=== PATIENT | male | born 1960 | race Caucasian/White ===

== ENCOUNTER 2018-05-08 03:43 | Emergency (ER) | payer SELFPAY ==
[~2018-05-08] VITALS: Ht 177.8 cm; Wt 81.6 kg
[2018-05-08] MEDS: SODIUM CHLORIDE 0.9% 1,000 ML IV ONE ×2 (05:39→07:48)
[2018-05-08] MEDS: InsuLIN REG 1unit/0.01ml Soln (100units/ml) IV ONE (05:45)
[2018-05-08 06:06] LABS: Basophils # (auto) 0 uL; Basophils % (auto) 0.4 % (0.0-2.0); Eosinophils # (auto) 0 uL; Eosinophils % (auto) 0.8 % (0.0-7.0); Hematocrit 45.5 % (41.0-53.0); Hemoglobin 15.3 g/dL (13.5-17.5); Lymphocytes # (auto) 2.1 uL; Lymphocytes % (auto) 40.3 % (10.0-50.0); Mean Corpuscular Hgb Conc. 33.6 g/dL (32.0-36.0); Mean Corpuscular Volume 98.1 fL (80.0-100.0); Monocytes # (auto) 0.2 uL; Monocytes % (auto) 3.6 % (0.0-12.0); Neutrophils # (auto) 2.9 uL; Neutrophils % (auto) 54.9 % (37.0-80.0); Nucleated Red Blood Cells % 0.1 %; Platelet Count (auto) 84 10^3/uL (140-450); Red Blood Cells 4.63 10^6/uL (4.5-5.90); Red Cell Distribution Width 12.8 % (11.8-14.3); White Blood Cell 5.2 10^3/uL (4.4-10.8)
[2018-05-08 06:21] LABS: Alanine Aminotransferase 152 U/L (16-61); Albumin 3.1 g/dL (3.4-5.0); Anion Gap 15 (5-15); Aspartate Aminotransferase 95 U/L (15-37); BUN/Creatinine Ratio 10.3; Blood Urea Nitrogen 8 mg/dL (7-18); Calcium 7.6 mg/dL (8.5-10.1); Carbon Dioxide 21 mmol/L (21-32); Chloride 106 mmol/L (98-107); GFR African American 131 mL/min; GFR Non-African American 109 mL/min; Magnesium 1.9 mg/dL (1.6-2.6); Potassium 3.6 mmol/L (3.5-5.1); Sodium 142 mmol/L (136-145)
[2018-05-08 06:26] LABS: Alkaline Phosphatase 264 U/L (45-117); Bilirubin, Total 0.3 mg/dL (0.2-1.0); Total Protein 7.4 g/dL (6.4-8.2)
[2018-05-08 06:30] LABS: Glucose 435 mg/dL (74-106)
[2018-05-08 07:52] LABS: Urine Bacteria NONE SEEN /hpf (None Seen); Urine Blood Negative /uL (Negative); Urine Specific Gravity 1.017 (1.001-1.035); Urine WBC <1 /hpf (0 - 3)
[2018-05-08 08:00] LABS: Amphetamine Screen, Urine NEGATIVE (NEGATIVE); Barbiturate Scree,Urine NEGATIVE (NEGATIVE); Benzodiazephine Screen, Urine NEGATIVE (NEGATIVE); Cannabinoid Screen, Urine NEGATIVE (NEGATIVE); Cocaine Screen, Urine NEGATIVE (NEGATIVE); Opiate Scree,Urine NEGATIVE (NEGATIVE); Phencyclidine Screen, Urine NEGATIVE (NEGATIVE)
[2018-05-08 09:25] VITALS: BP 137/88
[2018-05-08] MEDS: THIAMINE 100mg/ml INJ (200mg/2ml VIAL) IV ONE (09:27)
== END 2018-05-08 12:04 | disposition home or self-care (01) ==
LOC: EDBD 03:43 → ER 03:53
CPT/HCPCS: 36415 ×2; 70450 ×2; 71045 ×2; 80053 ×2; 80307 ×2; 80320 ×2; 81001 ×2; 82010 ×2; 83036 ×2; 83735 ×2; 83880 ×2; 84484 ×2; 85025 ×2; 93005 ×2; 96361 ×2; 96374 ×2; 96375 ×2; 99284; J1815 ×2; J3411; J7030